=== PATIENT | male | born 1960 | race African-American/Black ===

== ENCOUNTER 2017-07-09 19:05 | Inpatient (IN) | payer SELFPAY ==
[~2017-07-09] VITALS: Ht 180.3 cm; Wt 100.7 kg
[2017-07-09 19:08] VITALS: BP 194/88
[2017-07-09] MEDS ORDERED: NACL 0.9% 1,000 ML IV ONE (19:35)
[2017-07-09] MEDS ORDERED: NITROGLYCERIN 0.4 MG TAB SL ONE (19:35)
[2017-07-09] MEDS ORDERED: ASPIRIN 325 MG TAB PO ONE (19:35)
[2017-07-09] MEDS ORDERED: MORPHINE SULFATE 4 MG/ML SYR IVP ONE (19:35)
[2017-07-09] MEDS ORDERED: INSULIN REGULAR, HUMAN 100 UNIT/ML VIAL SUBQ ONE ×2 (19:40→21:25)
[2017-07-09 20:38] LABS: BASOPHILS # (AUTO) 0.1 K/uL (0.00-0.22); BASOPHILS % (AUTO) 1.9 % (0.0-2.0); EOSINOPHILS # (AUTO) 0.1 K/uL (0-0.4); EOSINOPHILS % (AUTO) 1.7 % (0.0-4.0); HEMATOCRIT 39.3 % (36-52); HEMOGLOBIN 12.8 g/dL (12.0-18.0); LYMPHOCYTES # (AUTO) 1.3 K/uL (2.0-11.5); LYMPHOCYTES % (AUTO) 23.7 % (20.5-51.1); MEAN CORPUSCULAR HEMOGLOBIN 29 pg (27-31); MEAN CORPUSCULAR HGB CONC 33 g/dL (33-37); MEAN CORPUSCULAR VOLUME 88.1 fL (80-94); MONOCYTES # (AUTO) 0.7 K/uL (0.8-1.0); MONOCYTES % (AUTO) 12.3 % (1.7-9.3); NEUTROPHILS # (AUTO) 3.2 K/uL (1.8-7.7); NEUTROPHILS % (AUTO) 60.4 % (42.2-75.2); PLATELET COUNT (AUTO) 156 K/uL (140-450); RED BLOOD CELL COUNT(AUTO) 4.46 MIL/uL (4.20-6.10); RED CELL DISTRIBUTION WIDTH 12.5 % (11.6-13.7); WHITE BLOOD COUNT (AUTO) 5.4 K/uL (4.8-10.8)
[2017-07-09 20:53] LABS: ALBUMIN 3.5 g/dL (3.4-5.0); ANION GAP 15.1 (8-16); CARBON DIOXIDE 26.9 mmol/L (21-32); CREATININE 1.5 mg/dL (0.7-1.3); TOTAL BILIRUBIN 0.3 mg/dL (0.0-1.0)
[2017-07-09] MEDS ORDERED: NACL 0.9% 1,000 ML IV SCH (21:40)
[2017-07-09] MEDS ORDERED: NITROGLYCERIN 0.4 MG TAB SL PRN (21:40)
[2017-07-09] MEDS ORDERED: DEXTROSE 50% 50 ML SYR IVP PRN (21:40)
[2017-07-09] MEDS ORDERED: ACETAMINOPHEN 325 MG TAB PO PRN (21:40)
[2017-07-09] MEDS ORDERED: ONDANSETRON 4 MG/2 ML VIAL IVP PRN (21:40)
[2017-07-09 22:23] LABS: APPEARANCE,URINE CLEAR (CLEAR); BILIRUBIN,URINE NEGATIVE (NEGATIVE); BLOOD, URINE 1+ (NEGATIVE); COLOR,URINE YELLOW (YELLOW); LEUKOCYTE ESTERASE ,URINE NEGATIVE (NEGATIVE); NITRITE, URINE NEGATIVE (NEGATIVE); UGLUCOSE 3+ (NEGATIVE)
[2017-07-09 22:53] LABS: RBC,URINE 0-5 (RARE) /HPF (0-5); WBC,URINE 0-5 (RARE) /HPF (0-5)
[2017-07-09 23:19] VITALS: BP 152/82
[2017-07-09 23:59] LABS: PROTHROMBIN TIME 9.9 secs (10.8-13.4)
[2017-07-10 01:02] LABS: BARBITURATE, URINE NEG. ng/ml (NEG <=200); BENZODIAZEPINE, URINE NEG. ng/mL (NEG <=200); CANNABINOID, URINE NEG. ng/mL (NEG <=50); COCAINE, URINE NEG. ng/mL (NEG <=300); OPIATE, URINE POS. ng/mL (NEG <=2000); PHENCYCLIDINE SCREEN,URINE NEG. ng/mL (NEG <=25)
[2017-07-10 01:03] LABS: CHOL/HDL RATIO 5.5 (1-4.5); FREE T4 (FREE THYROXINE) 0.92 ng/dL (0.76-1.46); PHOSPHORUS 3.6 mg/dL (2.5-4.9); THYROID STIMULATING HORMONE 0.8 uIU/mL (0.34-3.74)
[2017-07-10 04:00] VITALS: BP 143/89
[2017-07-10 04:11] LABS: BASOPHILS # (AUTO) 0.2 K/uL (0.00-0.22); EOSINOPHILS # (AUTO) 0.1 K/uL (0-0.4); EOSINOPHILS % (AUTO) 2.6 % (0.0-4.0); HEMATOCRIT 35.5 % (36-52); HEMOGLOBIN 11.3 g/dL (12.0-18.0); LYMPHOCYTES # (AUTO) 1.6 K/uL (2.0-11.5); LYMPHOCYTES % (AUTO) 28.6 % (20.5-51.1); MEAN CORPUSCULAR HEMOGLOBIN 28 pg (27-31); MEAN CORPUSCULAR HGB CONC 32 g/dL (33-37); MEAN CORPUSCULAR VOLUME 87.2 fL (80-94); MONOCYTES # (AUTO) 0.9 K/uL (0.8-1.0); MONOCYTES % (AUTO) 15.4 % (1.7-9.3); NEUTROPHILS # (AUTO) 2.8 K/uL (1.8-7.7); NEUTROPHILS % (AUTO) 49.4 % (42.2-75.2); PLATELET COUNT (AUTO) 142 K/uL (140-450); RED BLOOD CELL COUNT(AUTO) 4.07 MIL/uL (4.20-6.10); RED CELL DISTRIBUTION WIDTH 12.4 % (11.6-13.7); WHITE BLOOD COUNT (AUTO) 5.6 K/uL (4.8-10.8)
[2017-07-10 04:21] LABS: ANION GAP 10.9 (8-16); CARBON DIOXIDE 28.5 mmol/L (21-32); CREATININE 1.2 mg/dL (0.7-1.3); POTASSIUM 3.4 mmol/L (3.5-5.1)
[2017-07-10 04:22] LABS: MAGNESIUM 1.9 mg/dL (1.8-2.4); PHOSPHORUS 4.1 mg/dL (2.5-4.9)
[2017-07-10] MEDS: INSULIN LISPRO SLIDING SCALE 100 UNITS/ML VIAL SUBQ PRN ×4 (06:09→20:15)
[2017-07-10] MEDS: BLOOD GLUCOSE MONITORING 1 DEV DEV FS SCH ×4 (06:09→20:05)
[2017-07-10 08:00] VITALS: BP 135/74
[2017-07-10] MEDS: LISINOPRIL 5 MG TAB PO SCH (09:15)
[2017-07-10] MEDS: METOPROLOL 25 MG TAB PO SCH ×2 (09:15→20:10)
[2017-07-10] MEDS: DOCUSATE SODIUM 100 MG GELCAP PO SCH ×2 (09:15→20:12)
[2017-07-10] MEDS: ASPIRIN 81 MG TAB.CHEW PO SCH (09:15)
[2017-07-10] MEDS ORDERED: SUMAtriptan 25 MG TAB PO SCH (10:00)
[2017-07-10] MEDS: POTASSIUM CHLORIDE 20% 40 MEQ/15 ML UDC PO SCH (10:43)
[2017-07-10 12:00] VITALS: BP 153/84
[2017-07-10] MEDS: HYDROcodone/APAP 7.5/325 MG 1 TAB PO PRN ×2 (12:23→20:55)
[2017-07-10] MEDS ORDERED: GABAPENTIN 300 MG CAP PO SCH (12:30)
[2017-07-10] MEDS ORDERED: metFORMIN 500 MG TAB PO SCH (12:30)
[2017-07-10 16:00] VITALS: BP 131/81
[2017-07-10] MEDS: metFORMIN 500 MG TAB PO SCH (17:01)
[2017-07-10 20:00] VITALS: BP 127/71
[2017-07-10] MEDS ORDERED: INSULIN LANTUS 100 UNITS/ML 10 ML VIAL SUBQ SCH (21:00)
[2017-07-10] MEDS ORDERED: ATORVASTATIN 20 MG TAB PO SCH (21:00)
[2017-07-11] VITALS: BP 131/74
[2017-07-11 04:00] VITALS: BP 123/76
[2017-07-11] MEDS: BLOOD GLUCOSE MONITORING 1 DEV DEV FS SCH ×2 (06:15→12:59)
[2017-07-11] MEDS: INSULIN LISPRO SLIDING SCALE 100 UNITS/ML VIAL SUBQ PRN ×2 (06:18→13:07)
[2017-07-11 08:00] VITALS: BP 137/85
[2017-07-11 08:20] LABS: EOSINOPHILS # (AUTO) 0.1 K/uL (0-0.4); HEMATOCRIT 36.7 % (36-52); LYMPHOCYTES # (AUTO) 1.5 K/uL (2.0-11.5); MEAN CORPUSCULAR HEMOGLOBIN 29 pg (27-31); MEAN CORPUSCULAR HGB CONC 33 g/dL (33-37); MEAN CORPUSCULAR VOLUME 87.2 fL (80-94); MONOCYTES # (AUTO) 0.5 K/uL (0.8-1.0); NEUTROPHILS # (AUTO) 2.6 K/uL (1.8-7.7); PLATELET COUNT (AUTO) 154 K/uL (140-450); RED CELL DISTRIBUTION WIDTH 13.3 % (11.6-13.7); WHITE BLOOD COUNT (AUTO) 4.8 K/uL (4.8-10.8)
[2017-07-11 08:23] LABS: BASOPHILS % (AUTO) 0.2 % (0.0-2.0); EOSINOPHILS % (AUTO) 2.4 % (0.0-4.0); MONOCYTES % (AUTO) 11.1 % (1.7-9.3); NEUTROPHILS % (AUTO) 55.3 % (42.2-75.2)
[2017-07-11 08:29] LABS: ANION GAP 11.9 (8-16); CARBON DIOXIDE 25.9 mmol/L (21-32); CREATININE 1.1 mg/dL (0.7-1.3); POTASSIUM 3.8 mmol/L (3.5-5.1)
[2017-07-11] MEDS ORDERED: ATOR20TA40 PO (08:47)
[2017-07-11] MEDS ORDERED: GABA-638 PO (08:47)
[2017-07-11] MEDS ORDERED: ASPI81CT95 PO (08:47)
[2017-07-11] MEDS ORDERED: GLU500 PO (08:47)
[2017-07-11] MEDS ORDERED: LISI-424 PO (08:47)
[2017-07-11] MEDS ORDERED: DOCU-299 PO (08:47)
[2017-07-11] MEDS ORDERED: METO25TE2 PO (08:47)
[2017-07-11] MEDS ORDERED: LANTUS SUBQ (08:47)
[2017-07-11] MEDS: ASPIRIN 81 MG TAB.CHEW PO SCH (08:55)
[2017-07-11] MEDS: METOPROLOL 25 MG TAB PO SCH (08:56)
[2017-07-11] MEDS: LISINOPRIL 5 MG TAB PO SCH (08:57)
[2017-07-11] MEDS: metFORMIN 500 MG TAB PO SCH (08:57)
[2017-07-11] MEDS: DOCUSATE SODIUM 100 MG GELCAP PO SCH (08:57)
[2017-07-11] MEDS ORDERED: GABAPENTIN 300 MG CAP PO SCH (09:00)
[2017-07-11] MEDS ORDERED: CALCIUM CARB/VIT-D 500 MG/200 IU 1 TAB PO SCH (09:00)
[2017-07-11] MEDS: POTASSIUM CHLORIDE 20% 40 MEQ/15 ML UDC PO SCH (10:00)
[2017-07-11 12:00] VITALS: BP 127/76
== END 2017-07-11 13:00 | disposition home or self-care (01) | DRG 205 ==
LOC: MED 19:05 → MTU 21:50
PROVIDERS: ADMIT Family Medicine; ATTEND Family Medicine
DX: M94.0 Chondrocostal junction syndrome [Tietze] (principal); N17.0 Acute kidney failure with tubular necrosis; D68.59 Other primary thrombophilia; E11.65 Type 2 diabetes mellitus with hyperglycemia; E11.42 Type 2 diabetes mellitus with diabetic polyneuropathy; E11.51 Type 2 diabetes mellitus with diabetic peripheral angiopathy without gangrene; E11.69 Type 2 diabetes mellitus with other specified complication; I10 Essential (primary) hypertension; E78.5 Hyperlipidemia, unspecified; Z83.3 Family history of diabetes mellitus
CPT/HCPCS: 36415; 71045; 80048; 80053; 80305; 81001; 82009; 82150; 82948; 83036; 83690; 83735; 83880; 84100; 84439; 84443; 84484; 85025; 85610; 85730; 87081; 93005; 93925; 93970; 96361; 96374; 99285; J1815; J2270; Q0092

== ENCOUNTER 2020-11-02 23:09 | Emergency (ER) | payer MEDICAID ==
[~2020-11-02] VITALS: Ht 180.3 cm; Wt 103.4 kg
[~2020-11-02 23:09] MED LIST: ASPI81CT95 PO; ATOR20TA40 PO; DOCU-299 PO; GABA-638 PO; GLU500 PO; LANTUS SUBQ; LISI-648 PO; METO25TE2 PO
[2020-11-02 23:35] VITALS: BP 170/89
--- NOTE | 2020-11-02 23:38 | NUR ---
TO LOBBY A/W BED AMBULATORY
--- NOTE | 2020-11-03 01:04 | NUR ---
lwbs by Dr. Dickens.
== END 2020-11-03 01:03 | disposition left against medical advice (07) ==
LOC: MED 23:09
DX: R51.9 Headache, unspecified (principal); Z53.21 Procedure and treatment not carried out due to patient leaving prior to being seen by health care provider